=== PATIENT | female | born 1935 | race African-American/Black ===

== ENCOUNTER 2021-07-15 18:18 | Inpatient (IN) | payer MEDICARE, MEDICAID ==
[~2021-07-15] VITALS: Ht 160 cm; Wt 60.5 kg
[~2021-07-15 18:18] MED LIST: AMLO2.5T45 PO; HYDR-4001 MT; MELA10CA PO; MEMA10TA55 PO; PARO10TA74 PO; PRED5TAB48 PO; SOTA80TA PO; XAR15 GT
[2021-07-15] MEDS ORDERED: ACETAMINOPHEN 325MG TABLET PO STA (18:29)
[2021-07-15] MEDS ORDERED: PIPERACILLIN/TAZ 3.375G PREMIX 50 ML IV ONE (18:30)
[2021-07-15] MEDS ORDERED: SODIUM CHLORIDE 0.9% 1000ML BAG (SEPSIS BOLUS) IV ONE (18:30)
[2021-07-15 19:27] LABS: HEMATOCRIT. 28.3 % (36.0-48.0); HEMOGLOBIN. 9.7 g/dL (12.0-16.0); MEAN CORPUSCULAR HEMOGLOBIN 33.3 pg (28.0-32.0); MEAN CORPUSCULAR VOLUME 97.7 fL (81.0-99.0); PLATELET 356 x1000/uL (130-400); RED CELL DISTRIBUTION WIDTH 14.7 % (11.6-14.6)
[2021-07-15 19:52] LABS: PLATELET ESTIMATE NORMAL
[2021-07-15 22:26] LABS: INR 1.1; PARTIAL THROMBOPLASTIN TIME 28.8 sec (23.4-31.0); PROTHROMBIN TIME 12.2 sec (9.6-11.0)
[2021-07-15 22:27] LABS: CHLORIDE 97 mEq/L (98-107)
[2021-07-15] MEDS ORDERED: NICARDIPINE 100 MG in SODIUM CHLORIDE 0.9% 60 ML IV PRN (23:00)
[2021-07-15] MEDS ORDERED: MANNITOL 12.5G (25%) VIAL 50ML IV ONE (23:00)
[2021-07-15 23:45] VITALS: BP 171/103
[2021-07-15] MEDS ORDERED: HUMAN PROTHROMBIN COMPLX (PCC) 500 UNITS VIAL IV NR (23:45)
[2021-07-15] MEDS ORDERED: HUMAN PROTHROMBIN COMPLX IV NR (23:45)
[2021-07-15] MEDS: MANNITOL 20% 500 ML IV SCH (23:45)
[2021-07-16] VITALS (81 sets, daily range): BP systolic 98–179; BP diastolic 52–115
[2021-07-16] MEDS: DEXAMETHASONE 10 MG/ML VIAL IV SCH ×3 (00:06→12:30)
[2021-07-16] MEDS: NICARDIPINE 100 MG in SODIUM CHLORIDE 0.9% 60 ML IV PRN (00:07)
[2021-07-16] MEDS: DEXT 5%/LACTATED RINGERS 1,000 ML IV SCH ×2 (00:10→15:20)
[2021-07-16] MEDS: LEVETIRACETAM 500MG PREMIX 100 ML IV SCH ×3 (00:43→21:41)
[2021-07-16] MEDS ORDERED: ACETAMINOPHEN 650MG SUPP PR PRN (01:30)
[2021-07-16] MEDS ORDERED: IPRATROPIUM/ALBUTEROL 0.5-3(2.5)MG/3ML NEB HHN PRN (01:30)
[2021-07-16] MEDS ORDERED: ONDANSETRON HCL 4MG/2ML INJ IV PRN (01:30)
[2021-07-16] MEDS ORDERED: GUAIFENESIN 200MG/10ML SUGAR FREE UDC PO PRN (01:30)
[2021-07-16] MEDS ORDERED: CLONIDINE 0.1MG TABLET PO PRN (01:30)
[2021-07-16 02:07] LABS: CLARITY URINE CLEAR (CLEAR); COLOR URINE YELLOW (YELLOW); KETONES URINE NEGATIVE (NEGATIVE); LEUKOCYTE ESTERASE URINE 1+ (NEGATIVE); NITRITE URINE NEGATIVE (NEGATIVE); OCCULT BLOOD URINE NEGATIVE (NEGATIVE); PH URINE 6.5 (4.5-8.0); PROTEIN URINE NEGATIVE (NEGATIVE); SPECIFIC GRAVITY URINE 1.014 (1.005-1.030)
[2021-07-16] MEDS ORDERED: MANNITOL 20% (20GM/100ML) BAG 500ML PREMIX IV ONE (02:45)
[2021-07-16] MEDS ORDERED: MANNITOL 20% 125 ML IV NR (02:45)
[2021-07-16] MEDS: MANNITOL 20% 500 ML IV SCH ×6 (03:15→23:13)
[2021-07-16 04:20] LABS: HEMATOCRIT. 32.7 % (36.0-48.0); HEMOGLOBIN. 10.7 g/dL (12.0-16.0); MEAN CORPUSCULAR VOLUME 100.7 fL (81.0-99.0); MEAN PLATELET VOLUME 9.1 fl (7.4-10.4); PLATELET 267 x1000/uL (130-400); RED BLOOD CELL COUNT 3.24 mill/uL (4.2-5.4); RED CELL DISTRIBUTION WIDTH 15.4 % (11.6-14.6)
[2021-07-16 04:39] LABS: CHLORIDE 97 mEq/L (98-107)
[2021-07-16 04:47] LABS: HDL CHOLESTEROL 50 mg/dL (40-59)
[2021-07-16 04:48] LABS: LDL CHOLESTEROL 99 mg/dL (5-100)
[2021-07-16 04:49] LABS: CREATINE KINASE 201 IU/L (26-192)
[2021-07-16 04:50] LABS: T4 FREE 1.32 ng/dL (0.76-1.46)
[2021-07-16 06:03] LABS: PLATELET ESTIMATE NORMAL
[2021-07-16] MEDS ORDERED: BACITRACIN 15GM TUBE TOP ONE (06:48)
[2021-07-16] MEDS ORDERED: THROMBIN (BOVINE) 5000 UNITS/VIAL TOP ONE (06:49)
[2021-07-16] MEDS ORDERED: GENTAMICIN SULF 40MG/ML 2ML VIAL ONE (06:50)
[2021-07-16] MEDS ORDERED: NEOSTIGMINE METHYLSULFATE 1MG/ML 10 ML VIAL ONE (07:16)
[2021-07-16] MEDS ORDERED: FENTANYL CITRATE/PF 50MCG/ML 2ML VIAL ONE (07:16)
[2021-07-16] MEDS ORDERED: MIDAZOLAM HCL 2 MG/2 ML VIAL ONE (07:16)
[2021-07-16] MEDS ORDERED: ROCURONIUM BROMIDE 10MG/ML VIAL 5ML IV ONE (07:16)
[2021-07-16] MEDS ORDERED: PROPOFOL 200MG/20ML VIAL IV ONE (07:16)
[2021-07-16] MEDS ORDERED: GLYCOPYRROLATE 0.2 MG/ML 2ML VIAL ONE (07:17)
[2021-07-16] MEDS ORDERED: ONDANSETRON HCL 4MG/2ML INJ ONE (07:42)
[2021-07-16] MEDS ORDERED: DEXAMETHASONE 4MG/ML 1ML VIAL ONE (07:42)
[2021-07-16] MEDS ORDERED: SODIUM CHLORIDE 0.9% 10ML VIAL ONE (08:20)
[2021-07-16] MEDS ORDERED: CEFAZOLIN SODIUM 1000MG/VIAL ONE (08:20)
[2021-07-16] MEDS ORDERED: LABETALOL HCL 5MG/ML VIAL 20ML IV ONE (08:20)
[2021-07-16] MEDS ORDERED: HYDRALAZINE 20MG/ML VIAL ONE (08:20)
[2021-07-16] MEDS: MORPHINE SULFATE 2 MG/ML CPJ (NOT FOR IM USE) IV PRN (08:58)
[2021-07-16 09:24] LABS: INR 1.1; PARTIAL THROMBOPLASTIN TIME 24.5 sec (23.4-31.0); PROTHROMBIN TIME 11.5 sec (9.6-11.0)
[2021-07-16 10:33] LABS: BG BASE EXCESS -1.5 mmol/L (-2.0-2.0); BG CARBOXYHEMOGLOBIN 0.4 % (0.5-1.5); BG DEOXYHEMOGLOBIN 0.3 % (0.0-5.0); BG FRACTION INSPIRED OXYGEN 100; BG HCO3 ACT 21.5 mmol/L (22.0-26.0); BG METHEMOGLOBIN 0.2 % (0.0-1.5); BG OXYGEN SATURATION 99.7 % (92.0-98.5); BG OXYHEMOGLOBIN 99.1 % (94.0-97.0); BG PCO2 30.6 mmHg (35.0-45.0); BG PEEP (cmH2O) 0 cmH2O; BG PH 7.465 (7.350-7.450); BG PO2 398.2 mmHg (75.0-100.0); BG SAMPLE SITE RIGHT RADIAL; BG TOTAL HEMOGLOBIN 10.8 g/dL (12.0-18.0); BG VENT MODE VENT - AC
[2021-07-16] MEDS ORDERED: PROPOFOL 10MG/ML 100ML 100 ML IV PRN (12:00)
[2021-07-16] MEDS: IPRATROPIUM/ALBUTEROL 0.5-3(2.5)MG/3ML NEB HHN SCH ×2 (12:33→20:38)
[2021-07-16] MEDS ORDERED: LIDOCAINE HCL 1% 10 MG/ML 10ML VIAL ONE (13:10)
[2021-07-16] MEDS ORDERED: HYDRALAZINE 20MG/ML VIAL IV PRN (13:15)
[2021-07-16 19:58] LABS: CREATINE KINASE 74 IU/L (26-192)
[2021-07-17] VITALS (87 sets, daily range): BP systolic 93–142; BP diastolic 54–91
[2021-07-17] MEDS: IPRATROPIUM/ALBUTEROL 0.5-3(2.5)MG/3ML NEB HHN SCH ×4 (01:44→21:13)
[2021-07-17] MEDS: LEVETIRACETAM 500MG PREMIX 100 ML IV SCH ×2 (08:24→20:45)
[2021-07-17] MEDS: THIAMINE HCL 100MG TABLET PO SCH (08:24)
[2021-07-17] MEDS: MULTIVITAMINS,THER W-MINERALS TABLET PO SCH (08:24)
[2021-07-17] MEDS: NICARDIPINE 100 MG in SODIUM CHLORIDE 0.9% 60 ML IV PRN (08:24)
[2021-07-17] MEDS: FOLIC ACID/VITAMIN B COMP W-C TABLET PO SCH (08:24)
[2021-07-17 08:33] LABS: HEMATOCRIT. 28.2 % (36.0-48.0); HEMOGLOBIN. 9.4 g/dL (12.0-16.0); MEAN CORPUSCULAR HEMOGLOBIN 32.9 pg (28.0-32.0); MEAN CORPUSCULAR VOLUME 99.1 fL (81.0-99.0); MEAN PLATELET VOLUME 8.3 fl (7.4-10.4); PLATELET 395 x1000/uL (130-400); RED BLOOD CELL COUNT 2.85 mill/uL (4.2-5.4); RED CELL DISTRIBUTION WIDTH 15.6 % (11.6-14.6)
[2021-07-17 08:36] LABS: CHLORIDE 104 mEq/L (98-107)
[2021-07-17 10:05] LABS: BG BASE EXCESS 1.9 mmol/L (-2.0-2.0); BG CARBOXYHEMOGLOBIN 0.1 % (0.5-1.5); BG DEOXYHEMOGLOBIN 0.6 % (0.0-5.0); BG FRACTION INSPIRED OXYGEN 50; BG METHEMOGLOBIN 0.6 % (0.0-1.5); BG OXYGEN SATURATION 99.4 % (92.0-98.5); BG OXYHEMOGLOBIN 98.7 % (94.0-97.0); BG PCO2 26.2 mmHg (35.0-45.0); BG PEEP (cmH2O) 0 cmH2O; BG PH 7.561 (7.350-7.450); BG SAMPLE SITE LEFT BRACHIAL; BG TOTAL HEMOGLOBIN 12.6 g/dL (12.0-18.0); BG VENT MODE VENT - AC
[2021-07-17 10:45] LABS: PLATELET ESTIMATE NORMAL
[2021-07-17] MEDS ORDERED: POTASSIUM CHLORIDE 20MEQ/PACKET PO NR (13:30)
[2021-07-17] MEDS: SOTALOL HCL 80MG TABLET NG SCH ×2 (14:47→20:45)
[2021-07-17] MEDS: DEXT 5%/LACTATED RINGERS 1,000 ML IV SCH (14:47)
[2021-07-18] VITALS (95 sets, daily range): BP systolic 55–167; BP diastolic 24–124
[2021-07-18] MEDS: DEXT 5%/LACTATED RINGERS 1,000 ML IV SCH ×2 (01:32→17:57)
[2021-07-18] MEDS ORDERED: PHENYTOIN SODIUM 500 MG in SODIUM CHLORIDE 0.9% 50 ML IV SCH (02:00)
[2021-07-18] MEDS: IPRATROPIUM/ALBUTEROL 0.5-3(2.5)MG/3ML NEB HHN SCH ×3 (02:14→16:20)
[2021-07-18 05:47] LABS: HEMATOCRIT. 26.1 % (36.0-48.0); HEMOGLOBIN. 8.7 g/dL (12.0-16.0); MEAN CORPUSCULAR HEMOGLOBIN 33.1 pg (28.0-32.0); MEAN CORPUSCULAR VOLUME 99.4 fL (81.0-99.0); PLATELET 350 x1000/uL (130-400); RED BLOOD CELL COUNT 2.62 mill/uL (4.2-5.4); RED CELL DISTRIBUTION WIDTH 15.6 % (11.6-14.6)
[2021-07-18 06:02] LABS: CHLORIDE 111 mEq/L (98-107)
[2021-07-18] MEDS: PHENYTOIN SODIUM 100MG/2ML VIAL IV SCH ×3 (07:05→22:10)
[2021-07-18] MEDS: SOTALOL HCL 80MG TABLET NG SCH ×2 (08:03→21:00)
[2021-07-18] MEDS: FOLIC ACID/VITAMIN B COMP W-C TABLET PO SCH (08:03)
[2021-07-18] MEDS: THIAMINE HCL 100MG TABLET PO SCH (08:04)
[2021-07-18] MEDS: DOCUSATE SODIUM 100MG CAPSULE PO PRN (08:04)
[2021-07-18] MEDS: MULTIVITAMINS,THER W-MINERALS TABLET PO SCH (08:04)
[2021-07-18] MEDS: MORPHINE SULFATE 2 MG/ML CPJ (NOT FOR IM USE) IV PRN (08:05)
[2021-07-18] MEDS: LEVETIRACETAM 500MG PREMIX 100 ML IV SCH (08:18)
[2021-07-18 08:52] LABS: BG BASE EXCESS -2.1 mmol/L (-2.0-2.0); BG CARBOXYHEMOGLOBIN 0.3 % (0.5-1.5); BG DEOXYHEMOGLOBIN 0.3 % (0.0-5.0); BG FRACTION INSPIRED OXYGEN 80; BG HCO3 ACT 20.4 mmol/L (22.0-26.0); BG METHEMOGLOBIN 0.3 % (0.0-1.5); BG OXYGEN SATURATION 99.7 % (92.0-98.5); BG OXYHEMOGLOBIN 99.1 % (94.0-97.0); BG PCO2 26.4 mmHg (35.0-45.0); BG PH 7.506 (7.350-7.450); BG SAMPLE SITE RIGHT BRACHIAL; BG TOTAL HEMOGLOBIN 8.3 g/dL (12.0-18.0); BG VENT MODE VENT - AC
[2021-07-18 12:15] LABS: PLATELET ESTIMATE NORMAL
[2021-07-18] MEDS ORDERED: LEVETIRACETAM 1,000 MG in SODIUM CHLORIDE 0.9% 100 ML IV SCH (12:45)
[2021-07-18] MEDS: LEVETIRACETAM 1000MG PREMIX 100 ML IV SCH ×2 (14:29→21:24)
[2021-07-18] MEDS: PHENYLEPHRINE 100 MG in DEXT 5% WATER 240 ML IV PRN ×2 (17:52→20:26)
[2021-07-19] VITALS (93 sets, daily range): BP systolic 58–144; BP diastolic 36–83
[2021-07-19] MEDS: IPRATROPIUM/ALBUTEROL 0.5-3(2.5)MG/3ML NEB HHN SCH ×4 (01:11→19:54)
[2021-07-19] MEDS: LORAZEPAM 2MG/ML CPJ IV PRN ×2 (01:14→14:39)
[2021-07-19 04:23] LABS: HEMATOCRIT. 23.4 % (36.0-48.0); HEMOGLOBIN. 7.7 g/dL (12.0-16.0); MEAN CORPUSCULAR HEMOGLOBIN 32.8 pg (28.0-32.0); MEAN CORPUSCULAR VOLUME 99.3 fL (81.0-99.0); RED BLOOD CELL COUNT 2.36 mill/uL (4.2-5.4); RED CELL DISTRIBUTION WIDTH 14.9 % (11.6-14.6)
[2021-07-19 04:31] LABS: CHLORIDE 111 mEq/L (98-107)
[2021-07-19] MEDS: PHENYTOIN SODIUM 100MG/2ML VIAL IV SCH ×3 (05:39→22:15)
[2021-07-19] MEDS ORDERED: NALOXONE HCL 0.4MG/ML VIAL IV PRN (08:15)
[2021-07-19] MEDS: THIAMINE HCL 100MG TABLET PO SCH (08:25)
[2021-07-19] MEDS: DOCUSATE SODIUM 100MG CAPSULE PO PRN (08:25)
[2021-07-19] MEDS: SOTALOL HCL 80MG TABLET NG SCH ×2 (08:26→21:00)
[2021-07-19] MEDS: FOLIC ACID/VITAMIN B COMP W-C TABLET PO SCH (08:26)
[2021-07-19] MEDS: MULTIVITAMINS,THER W-MINERALS TABLET PO SCH (08:26)
[2021-07-19] MEDS: LEVETIRACETAM 1000MG PREMIX 100 ML IV SCH ×2 (08:27→21:55)
[2021-07-19] MEDS: DOCUSATE SODIUM SUGAR FREE 100MG/10ML UDC NG SCH (08:36)
[2021-07-19] MEDS: PANTOPRAZOLE SODIUM 40 MG/VIAL IV SCH (08:36)
[2021-07-19] MEDS: DEXT 5%/LACTATED RINGERS 1,000 ML IV SCH (08:37)
[2021-07-19 11:11] LABS: BG BASE EXCESS 1.8 mmol/L (-2.0-2.0); BG CARBOXYHEMOGLOBIN 0.3 % (0.5-1.5); BG FRACTION INSPIRED OXYGEN 35; BG HCO3 ACT 24.7 mmol/L (22.0-26.0); BG OXYHEMOGLOBIN 98.7 % (94.0-97.0); BG PH 7.506 (7.350-7.450); BG PO2 138.1 mmHg (75.0-100.0); BG SAMPLE SITE RIGHT RADIAL; BG TOTAL HEMOGLOBIN 8.4 g/dL (12.0-18.0); BG VENT MODE VENT - AC
[2021-07-20] VITALS (87 sets, daily range): BP systolic 88–138; BP diastolic 46–83
[2021-07-20] MEDS: IPRATROPIUM/ALBUTEROL 0.5-3(2.5)MG/3ML NEB HHN SCH ×4 (02:02→20:19)
[2021-07-20] MEDS: DEXT 5%/LACTATED RINGERS 1,000 ML IV SCH ×2 (04:10→18:29)
[2021-07-20] MEDS: PHENYTOIN SODIUM 100MG/2ML VIAL IV SCH ×3 (06:16→20:33)
[2021-07-20] MEDS: MULTIVITAMINS,THER W-MINERALS TABLET PO SCH (08:18)
[2021-07-20] MEDS: THIAMINE HCL 100MG TABLET PO SCH (08:18)
[2021-07-20] MEDS: FOLIC ACID/VITAMIN B COMP W-C TABLET PO SCH (08:18)
[2021-07-20] MEDS: DOCUSATE SODIUM SUGAR FREE 100MG/10ML UDC NG SCH (08:18)
[2021-07-20] MEDS: LEVETIRACETAM 1000MG PREMIX 100 ML IV SCH ×2 (08:18→20:33)
[2021-07-20] MEDS: PANTOPRAZOLE SODIUM 40 MG/VIAL IV SCH (08:18)
[2021-07-20] MEDS: SOTALOL HCL 80MG TABLET NG SCH ×2 (08:19→21:00)
[2021-07-20 08:48] LABS: BG BASE EXCESS 3.3 mmol/L (-2.0-2.0); BG CARBOXYHEMOGLOBIN 0.9 % (0.5-1.5); BG DEOXYHEMOGLOBIN 1.9 % (0.0-5.0); BG FRACTION INSPIRED OXYGEN 35; BG HCO3 ACT 26.3 mmol/L (22.0-26.0); BG METHEMOGLOBIN 0.3 % (0.0-1.5); BG OXYGEN SATURATION 98.1 % (92.0-98.5); BG OXYHEMOGLOBIN 96.9 % (94.0-97.0); BG PCO2 33.5 mmHg (35.0-45.0); BG PH 7.513 (7.350-7.450); BG SAMPLE SITE RIGHT RADIAL; BG TOTAL HEMOGLOBIN 8.6 g/dL (12.0-18.0); BG VENT MODE VENT - AC
[2021-07-21] VITALS (86 sets, daily range): BP systolic 82–133; BP diastolic 44–80
[2021-07-21] MEDS: IPRATROPIUM/ALBUTEROL 0.5-3(2.5)MG/3ML NEB HHN SCH ×4 (02:10→21:23)
[2021-07-21] MEDS: PHENYTOIN SODIUM 100MG/2ML VIAL IV SCH ×3 (05:21→21:35)
[2021-07-21] MEDS: SOTALOL HCL 80MG TABLET NG SCH ×4 (09:00→21:36)
[2021-07-21 09:11] LABS: BG BASE EXCESS 1.5 mmol/L (-2.0-2.0); BG CARBOXYHEMOGLOBIN 0.9 % (0.5-1.5); BG DEOXYHEMOGLOBIN 1.7 % (0.0-5.0); BG FRACTION INSPIRED OXYGEN 35; BG HCO3 ACT 24.2 mmol/L (22.0-26.0); BG METHEMOGLOBIN 0.2 % (0.0-1.5); BG OXYGEN SATURATION 98.3 % (92.0-98.5); BG OXYHEMOGLOBIN 97.2 % (94.0-97.0); BG PCO2 30.5 mmHg (35.0-45.0); BG PH 7.518 (7.350-7.450); BG PO2 109.7 mmHg (75.0-100.0); BG SAMPLE SITE RIGHT BRACHIAL; BG TOTAL HEMOGLOBIN 7.8 g/dL (12.0-18.0); BG VENT MODE VENT - AC
[2021-07-21] MEDS: PANTOPRAZOLE SODIUM 40 MG/VIAL IV SCH (09:38)
[2021-07-21] MEDS: THIAMINE HCL 100MG TABLET PO SCH (09:38)
[2021-07-21] MEDS: LEVETIRACETAM 1000MG PREMIX 100 ML IV SCH ×2 (09:38→21:35)
[2021-07-21] MEDS: FOLIC ACID/VITAMIN B COMP W-C TABLET PO SCH (09:38)
[2021-07-21] MEDS: DOCUSATE SODIUM SUGAR FREE 100MG/10ML UDC NG SCH (09:38)
[2021-07-21] MEDS: MULTIVITAMINS,THER W-MINERALS TABLET PO SCH (09:39)
[2021-07-21] MEDS ORDERED: POLYVINYL ALCOHOL OPHTH DROPS 15ML BOTHEYE PRN (10:45)
[2021-07-21 12:07] LABS: HEMATOCRIT. 25.2 % (36.0-48.0); MEAN CORPUSCULAR HEMOGLOBIN 32.3 pg (28.0-32.0); MEAN CORPUSCULAR VOLUME 101.4 fL (81.0-99.0); MEAN PLATELET VOLUME 7.9 fl (7.4-10.4); PLATELET 198 x1000/uL (130-400); RED BLOOD CELL COUNT 2.48 mill/uL (4.2-5.4); RED CELL DISTRIBUTION WIDTH 15.3 % (11.6-14.6)
[2021-07-21 12:58] LABS: CHLORIDE 104 mEq/L (98-107)
[2021-07-21] MEDS: DEXT 5%/LACTATED RINGERS 1,000 ML IV SCH (13:38)
[2021-07-21 14:13] LABS: PLATELET ESTIMATE NORMAL
[2021-07-21] MEDS: ACETAMINOPHEN 650MG/20.3ML UDC PO PRN ×2 (17:23)
[2021-07-21] MEDS: CEFEPIME 1,000 MG in DEXTROSE 5% WATER 50 ML IV SCH (21:35)
[2021-07-22] VITALS (89 sets, daily range): BP systolic 84–165; BP diastolic 34–102
[2021-07-22] MEDS: PHENYLEPHRINE 100 MG in DEXT 5% WATER 240 ML IV PRN ×2 (01:17→14:44)
[2021-07-22] MEDS: IPRATROPIUM/ALBUTEROL 0.5-3(2.5)MG/3ML NEB HHN SCH ×4 (01:32→20:26)
[2021-07-22] MEDS: PHENYTOIN SODIUM 100MG/2ML VIAL IV SCH ×3 (06:27→22:49)
[2021-07-22] MEDS: DEXT 5%/LACTATED RINGERS 1,000 ML IV SCH ×2 (06:28→21:56)
[2021-07-22 07:33] LABS: BG BASE EXCESS 1.9 mmol/L (-2.0-2.0); BG CARBOXYHEMOGLOBIN 0.4 % (0.5-1.5); BG DEOXYHEMOGLOBIN 4.4 % (0.0-5.0); BG HCO3 ACT 24.5 mmol/L (22.0-26.0); BG METHEMOGLOBIN 0.3 % (0.0-1.5); BG OXYGEN SATURATION 95.6 % (92.0-98.5); BG OXYHEMOGLOBIN 94.9 % (94.0-97.0); BG PCO2 30.6 mmHg (35.0-45.0); BG PH 7.521 (7.350-7.450); BG PO2 75.4 mmHg (75.0-100.0); BG SAMPLE SITE RIGHT RADIAL; BG TOTAL HEMOGLOBIN 9.4 g/dL (12.0-18.0); BG VENT MODE VENT - AC
[2021-07-22] MEDS: ACETAMINOPHEN 650MG/20.3ML UDC PO PRN (07:59)
[2021-07-22] MEDS: CEFEPIME 1,000 MG in DEXTROSE 5% WATER 50 ML IV SCH ×2 (08:00→21:55)
[2021-07-22] MEDS: PANTOPRAZOLE SODIUM 40 MG/VIAL IV SCH (08:00)
[2021-07-22] MEDS: DOCUSATE SODIUM SUGAR FREE 100MG/10ML UDC NG SCH (08:00)
[2021-07-22] MEDS: MULTIVITAMINS,THER W-MINERALS TABLET PO SCH (08:00)
[2021-07-22] MEDS: LEVETIRACETAM 1000MG PREMIX 100 ML IV SCH ×2 (08:00→21:55)
[2021-07-22] MEDS: SOTALOL HCL 80MG TABLET NG SCH ×2 (08:00→21:00)
[2021-07-22] MEDS: LORAZEPAM 2MG/ML CPJ IV PRN (19:07)
[2021-07-23] VITALS (89 sets, daily range): BP systolic 54–163; BP diastolic 33–106
[2021-07-23] MEDS: IPRATROPIUM/ALBUTEROL 0.5-3(2.5)MG/3ML NEB HHN SCH ×4 (01:33→21:13)
[2021-07-23] MEDS: PHENYTOIN SODIUM 100MG/2ML VIAL IV SCH ×3 (05:27→21:33)
[2021-07-23] MEDS: PHENYLEPHRINE 100 MG in DEXT 5% WATER 240 ML IV PRN ×2 (05:29→17:52)
[2021-07-23 05:50] LABS: CHLORIDE 102 mEq/L (98-107)
[2021-07-23 05:56] LABS: BASOPHILS % 0.4 % (0.0-2.0); EOSINOPHILS % 1.5 % (0.0-5.0); HEMOGLOBIN. 8.3 g/dL (12.0-16.0); LYMPHOCYTES % 14.8 % (20.0-50.0); MEAN CORPUSCULAR HEMOGLOBIN 33.1 pg (28.0-32.0); MEAN CORPUSCULAR VOLUME 99.2 fL (81.0-99.0); MEAN PLATELET VOLUME 9.1 fl (7.4-10.4); NEUTROPHILS % 70.3 % (40.0-76.0); PLATELET 210 x1000/uL (130-400); RED BLOOD CELL COUNT 2.52 mill/uL (4.2-5.4); RED CELL DISTRIBUTION WIDTH 15.1 % (11.6-14.6)
[2021-07-23 08:32] LABS: BG BASE EXCESS 2.9 mmol/L (-2.0-2.0); BG CARBOXYHEMOGLOBIN 0.5 % (0.5-1.5); BG DEOXYHEMOGLOBIN 1.1 % (0.0-5.0); BG FRACTION INSPIRED OXYGEN 40; BG HCO3 ACT 25.5 mmol/L (22.0-26.0); BG METHEMOGLOBIN 0.3 % (0.0-1.5); BG OXYGEN SATURATION 98.9 % (92.0-98.5); BG OXYHEMOGLOBIN 98.1 % (94.0-97.0); BG PCO2 31.6 mmHg (35.0-45.0); BG PH 7.525 (7.350-7.450); BG PO2 120.1 mmHg (75.0-100.0); BG SAMPLE SITE RIGHT RADIAL; BG VENT MODE VENT - AC
[2021-07-23] MEDS: MULTIVITAMINS,THER W-MINERALS TABLET PO SCH (09:00)
[2021-07-23] MEDS: DOCUSATE SODIUM SUGAR FREE 100MG/10ML UDC NG SCH (09:00)
[2021-07-23] MEDS: SOTALOL HCL 80MG TABLET NG SCH ×2 (09:00→20:58)
[2021-07-23] MEDS: PANTOPRAZOLE SODIUM 40 MG/VIAL IV SCH (09:26)
[2021-07-23] MEDS: CEFEPIME 1,000 MG in DEXTROSE 5% WATER 50 ML IV SCH ×2 (09:26→20:57)
[2021-07-23] MEDS: LEVETIRACETAM 1000MG PREMIX 100 ML IV SCH ×2 (09:27→21:33)
[2021-07-23] MEDS: ACETAMINOPHEN 650MG SUPP PR PRN (16:00)
[2021-07-23] MEDS: DEXT 5%/LACTATED RINGERS 1,000 ML IV SCH (17:49)
[2021-07-24] VITALS (98 sets, daily range): BP systolic 81–155; BP diastolic 36–86
[2021-07-24] MEDS: IPRATROPIUM/ALBUTEROL 0.5-3(2.5)MG/3ML NEB HHN SCH ×4 (01:02→21:02)
[2021-07-24] MEDS: DEXT 5%/LACTATED RINGERS 1,000 ML IV SCH ×2 (06:08→23:40)
[2021-07-24 07:56] LABS: BG BASE EXCESS 1.8 mmol/L (-2.0-2.0); BG CARBOXYHEMOGLOBIN 0.2 % (0.5-1.5); BG DEOXYHEMOGLOBIN 1.4 % (0.0-5.0); BG HCO3 ACT 24.8 mmol/L (22.0-26.0); BG METHEMOGLOBIN 0.2 % (0.0-1.5); BG OXYGEN SATURATION 98.6 % (92.0-98.5); BG OXYHEMOGLOBIN 98.2 % (94.0-97.0); BG PCO2 32.7 mmHg (35.0-45.0); BG PH 7.498 (7.350-7.450); BG PO2 117.2 mmHg (75.0-100.0); BG SAMPLE SITE RIGHT RADIAL; BG TOTAL HEMOGLOBIN 9.6 g/dL (12.0-18.0); BG VENT MODE VENT - AC
[2021-07-24] MEDS: MULTIVITAMINS,THER W-MINERALS TABLET PO SCH ×2 (08:13→08:16)
[2021-07-24] MEDS: PANTOPRAZOLE SODIUM 40 MG/VIAL IV SCH (08:13)
[2021-07-24] MEDS: PHENYTOIN SODIUM 100MG/2ML VIAL IV SCH ×3 (08:14→17:07)
[2021-07-24] MEDS: DOCUSATE SODIUM 100MG CAPSULE PO PRN (08:14)
[2021-07-24] MEDS: CEFEPIME 1,000 MG in DEXTROSE 5% WATER 50 ML IV SCH ×2 (08:14→22:15)
[2021-07-24] MEDS: LEVETIRACETAM 1000MG PREMIX 100 ML IV SCH ×2 (08:14→22:15)
[2021-07-24] MEDS: SOTALOL HCL 80MG TABLET NG SCH ×2 (08:14→22:15)
[2021-07-24] MEDS: DOCUSATE SODIUM SUGAR FREE 100MG/10ML UDC NG SCH (08:16)
[2021-07-24] MEDS: PHENYLEPHRINE 100 MG in DEXT 5% WATER 240 ML IV PRN (11:04)
[2021-07-25] VITALS (85 sets, daily range): BP systolic 87–126; BP diastolic 45–86
[2021-07-25] MEDS ORDERED: IPRATROPIUM/ALBUTEROL 0.5-3(2.5)MG/3ML NEB ONE ×2 (02:13→02:14)
[2021-07-25] MEDS: IPRATROPIUM/ALBUTEROL 0.5-3(2.5)MG/3ML NEB HHN SCH ×4 (02:22→19:46)
[2021-07-25] MEDS: LEVETIRACETAM 1000MG PREMIX 100 ML IV SCH ×2 (08:10→21:14)
[2021-07-25] MEDS: CEFEPIME 1,000 MG in DEXTROSE 5% WATER 50 ML IV SCH ×2 (08:10→21:14)
[2021-07-25] MEDS: PANTOPRAZOLE SODIUM 40 MG/VIAL IV SCH (08:10)
[2021-07-25] MEDS: PHENYTOIN SODIUM 100MG/2ML VIAL IV SCH ×3 (08:10→16:24)
[2021-07-25] MEDS: MULTIVITAMINS,THER W-MINERALS TABLET PO SCH (08:10)
[2021-07-25] MEDS: DOCUSATE SODIUM 100MG CAPSULE PO PRN (08:11)
[2021-07-25] MEDS: SOTALOL HCL 80MG TABLET NG SCH (08:11)
[2021-07-25] MEDS: DOCUSATE SODIUM SUGAR FREE 100MG/10ML UDC NG SCH (08:16)
[2021-07-25] MEDS: DEXT 5%/LACTATED RINGERS 1,000 ML IV SCH (16:24)
[2021-07-25] MEDS: AMIODARONE HCL 200 MG TABLET NG SCH ×2 (17:42→21:14)
[2021-07-26] VITALS (73 sets, daily range): BP systolic 83–131; BP diastolic 47–83
[2021-07-26] MEDS: IPRATROPIUM/ALBUTEROL 0.5-3(2.5)MG/3ML NEB HHN SCH ×4 (01:38→21:04)
[2021-07-26 04:41] LABS: HEMATOCRIT 23.9 % (36.0-48.0); MEAN CORPUSCULAR HEMOGLOBIN 33.2 pg (28.0-32.0); MEAN CORPUSCULAR VOLUME 98.9 fL (81.0-99.0); PLATELET 203 x1000/uL (130-400); RED BLOOD CELL COUNT 2.42 mill/uL (4.2-5.4); RED CELL DISTRIBUTION WIDTH 15.1 % (11.6-14.6)
[2021-07-26 04:46] LABS: CHLORIDE 99 mEq/L (98-107)
[2021-07-26] MEDS ORDERED: POTASSIUM CHLORIDE 20MEQ TABLET SR PO SCH (08:15)
[2021-07-26] MEDS ORDERED: IPRATROPIUM/ALBUTEROL 0.5-3(2.5)MG/3ML NEB ONE ×2 (08:28→12:11)
[2021-07-26 08:38] LABS: BG BASE EXCESS 4.3 mmol/L (-2.0-2.0); BG CARBOXYHEMOGLOBIN 0.6 % (0.5-1.5); BG DEOXYHEMOGLOBIN 3.4 % (0.0-5.0); BG HCO3 ACT 27.4 mmol/L (22.0-26.0); BG METHEMOGLOBIN 0.2 % (0.0-1.5); BG OXYGEN SATURATION 96.6 % (92.0-98.5); BG OXYHEMOGLOBIN 95.8 % (94.0-97.0); BG PCO2 34.5 mmHg (35.0-45.0); BG PH 7.518 (7.350-7.450); BG PO2 83.6 mmHg (75.0-100.0); BG SAMPLE SITE RIGHT BRACHIAL; BG TOTAL HEMOGLOBIN 8.1 g/dL (12.0-18.0); BG VENT MODE VENT - AC
[2021-07-26] MEDS: MULTIVITAMINS,THER W-MINERALS TABLET PO SCH (09:10)
[2021-07-26] MEDS: DOCUSATE SODIUM SUGAR FREE 100MG/10ML UDC NG SCH (09:10)
[2021-07-26] MEDS: PANTOPRAZOLE SODIUM 40 MG/VIAL IV SCH (09:10)
[2021-07-26] MEDS: PHENYTOIN SODIUM 100MG/2ML VIAL IV SCH ×3 (09:10→17:19)
[2021-07-26] MEDS: AMIODARONE HCL 200 MG TABLET NG SCH ×2 (09:10→20:55)
[2021-07-26] MEDS: LEVETIRACETAM 1000MG PREMIX 100 ML IV SCH ×2 (09:10→20:54)
[2021-07-26] MEDS: CEFEPIME 1,000 MG in DEXTROSE 5% WATER 50 ML IV SCH (09:10)
[2021-07-26] MEDS: DEXT 5%/LACTATED RINGERS 1,000 ML IV SCH (09:21)
[2021-07-26] MEDS: PHENYLEPHRINE 100 MG in DEXT 5% WATER 240 ML IV PRN (18:03)
[2021-07-27] VITALS (95 sets, daily range): BP systolic 84–134; BP diastolic 48–76
[2021-07-27] MEDS: IPRATROPIUM/ALBUTEROL 0.5-3(2.5)MG/3ML NEB HHN SCH ×4 (01:04→20:18)
[2021-07-27] MEDS: DEXT 5%/LACTATED RINGERS 1,000 ML IV SCH ×2 (02:01→18:07)
[2021-07-27] MEDS: DOCUSATE SODIUM SUGAR FREE 100MG/10ML UDC NG SCH (08:35)
[2021-07-27] MEDS: LEVETIRACETAM 1000MG PREMIX 100 ML IV SCH ×2 (08:35→20:45)
[2021-07-27] MEDS: PANTOPRAZOLE SODIUM 40 MG/VIAL IV SCH (08:35)
[2021-07-27] MEDS: MULTIVITAMINS,THER W-MINERALS TABLET PO SCH (08:35)
[2021-07-27] MEDS: PHENYTOIN SODIUM 100MG/2ML VIAL IV SCH ×3 (08:55→17:03)
[2021-07-27] MEDS: AMIODARONE HCL 200 MG TABLET NG SCH ×2 (09:00→20:47)
[2021-07-28] VITALS (93 sets, daily range): BP systolic 51–137; BP diastolic 25–101
[2021-07-28] MEDS: IPRATROPIUM/ALBUTEROL 0.5-3(2.5)MG/3ML NEB HHN SCH ×4 (02:37→20:39)
[2021-07-28 06:42] LABS: CHLORIDE 99 mEq/L (98-107); TOTAL IRON BINDING CAPACITY 183 ug/dL (250-450)
[2021-07-28 07:06] LABS: VITAMIN B12 SERUM 1663 pg/mL (211-911)
[2021-07-28] MEDS: PANTOPRAZOLE SODIUM 40 MG/VIAL IV SCH (08:43)
[2021-07-28] MEDS: LEVETIRACETAM 1000MG PREMIX 100 ML IV SCH ×2 (08:43→21:31)
[2021-07-28] MEDS: PHENYTOIN SODIUM 100MG/2ML VIAL IV SCH (08:43)
[2021-07-28] MEDS: AMIODARONE HCL 200 MG TABLET NG SCH ×2 (08:43→20:59)
[2021-07-28] MEDS: DOCUSATE SODIUM SUGAR FREE 100MG/10ML UDC NG SCH (08:43)
[2021-07-28] MEDS: MULTIVITAMINS,THER W-MINERALS TABLET PO SCH (08:44)
[2021-07-28 09:12] LABS: BG BASE EXCESS 6.6 mmol/L (-2.0-2.0); BG DEOXYHEMOGLOBIN 2.2 % (0.0-5.0); BG FRACTION INSPIRED OXYGEN 30; BG HCO3 ACT 29.8 mmol/L (22.0-26.0); BG METHEMOGLOBIN 0.3 % (0.0-1.5); BG OXYGEN SATURATION 97.8 % (92.0-98.5); BG OXYHEMOGLOBIN 96.5 % (94.0-97.0); BG PCO2 37.1 mmHg (35.0-45.0); BG PH 7.523 (7.350-7.450); BG PO2 98.2 mmHg (75.0-100.0); BG SAMPLE SITE RIGHT RADIAL; BG TOTAL HEMOGLOBIN 8.8 g/dL (12.0-18.0); BG VENT MODE VENT - AC
[2021-07-28] MEDS: DEXT 5%/LACTATED RINGERS 1,000 ML IV SCH (10:27)
[2021-07-28] MEDS: CEFEPIME 2,000 MG in DEXT 5% WATER 100 ML IV SCH (13:54)
[2021-07-28] MEDS ORDERED: AMIODARONE HCL 900 MG in DEXT 5% WATER 482 ML IV PRN (16:45)
[2021-07-28] MEDS ORDERED: AMIODARONE HCL 150 MG in DEXT 5% WATER 100 ML IV SCH (17:30)
[2021-07-28] MEDS: ACETAMINOPHEN 650MG SUPP PR PRN (22:53)
[2021-07-29] VITALS (97 sets, daily range): BP systolic 75–153; BP diastolic 24–87
[2021-07-29] MEDS: CEFEPIME 2,000 MG in DEXT 5% WATER 100 ML IV SCH ×2 (00:26→12:30)
[2021-07-29] MEDS: DEXT 5%/LACTATED RINGERS 1,000 ML IV SCH ×2 (02:24→21:25)
[2021-07-29] MEDS: IPRATROPIUM/ALBUTEROL 0.5-3(2.5)MG/3ML NEB HHN SCH ×4 (04:30→20:28)
[2021-07-29 06:09] LABS: BASOPHILS % 0.5 % (0.0-2.0); EOSINOPHILS % 0.5 % (0.0-5.0); HEMATOCRIT. 24.7 % (36.0-48.0); HEMOGLOBIN. 8.2 g/dL (12.0-16.0); LYMPHOCYTES % 16.2 % (20.0-50.0); MEAN CORPUSCULAR HEMOGLOBIN 32.3 pg (28.0-32.0); MEAN CORPUSCULAR VOLUME 96.8 fL (81.0-99.0); MEAN PLATELET VOLUME 8.8 fl (7.4-10.4); MONOCYTES % 3.4 % (2.0-8.0); NEUTROPHILS % 79.4 % (40.0-76.0); PLATELET 278 x1000/uL (130-400); RED BLOOD CELL COUNT 2.55 mill/uL (4.2-5.4)
[2021-07-29 06:26] LABS: CHLORIDE 96 mEq/L (98-107)
[2021-07-29 07:55] LABS: BG BASE EXCESS 3.6 mmol/L (-2.0-2.0); BG CARBOXYHEMOGLOBIN 0.3 % (0.5-1.5); BG HCO3 ACT 26.1 mmol/L (22.0-26.0); BG METHEMOGLOBIN 0.1 % (0.0-1.5); BG OXYHEMOGLOBIN 91.6 % (94.0-97.0); BG PCO2 31.2 mmHg (35.0-45.0); BG SAMPLE SITE RIGHT RADIAL; BG TOTAL HEMOGLOBIN 9.1 g/dL (12.0-18.0); BG VENT MODE VENT - AC
[2021-07-29] MEDS: LEVETIRACETAM 1000MG PREMIX 100 ML IV SCH ×2 (08:15→21:25)
[2021-07-29] MEDS: PANTOPRAZOLE SODIUM 40 MG/VIAL IV SCH (08:15)
[2021-07-29] MEDS: DOCUSATE SODIUM SUGAR FREE 100MG/10ML UDC NG SCH (08:16)
[2021-07-29] MEDS: AMIODARONE HCL 200 MG TABLET NG SCH ×2 (08:16→21:00)
[2021-07-29] MEDS: MULTIVITAMINS,THER W-MINERALS TABLET PO SCH (08:16)
[2021-07-29] MEDS: PHENYLEPHRINE 100 MG in DEXT 5% WATER 240 ML IV PRN (12:31)
[2021-07-30] VITALS (72 sets, daily range): BP systolic 68–139; BP diastolic 36–104
[2021-07-30] MEDS: CEFEPIME 2,000 MG in DEXT 5% WATER 100 ML IV SCH ×2 (00:53→13:04)
[2021-07-30] MEDS: IPRATROPIUM/ALBUTEROL 0.5-3(2.5)MG/3ML NEB HHN SCH ×4 (00:53→19:50)
[2021-07-30] MEDS: DEXT 5%/LACTATED RINGERS 1,000 ML IV SCH (07:46)
[2021-07-30] MEDS: ACETYLCYSTEINE 100MG/ML 10% VIAL 4ML INH SCH (08:39)
[2021-07-30] MEDS: DOCUSATE SODIUM SUGAR FREE 100MG/10ML UDC NG SCH ×2 (09:00→09:10)
[2021-07-30] MEDS: MULTIVITAMINS,THER W-MINERALS TABLET PO SCH ×2 (09:10→09:42)
[2021-07-30] MEDS: AMIODARONE HCL 200 MG TABLET NG SCH ×2 (09:10→09:33)
[2021-07-30] MEDS: PANTOPRAZOLE SODIUM 40 MG/VIAL IV SCH (09:33)
[2021-07-30] MEDS: LEVETIRACETAM 1000MG PREMIX 100 ML IV SCH ×2 (09:33→21:38)
[2021-07-30 09:38] LABS: BG BASE EXCESS 3.7 mmol/L (-2.0-2.0); BG CARBOXYHEMOGLOBIN 0.5 % (0.5-1.5); BG DEOXYHEMOGLOBIN 1.6 % (0.0-5.0); BG FRACTION INSPIRED OXYGEN 60; BG METHEMOGLOBIN 0.4 % (0.0-1.5); BG OXYGEN SATURATION 98.4 % (92.0-98.5); BG OXYHEMOGLOBIN 97.5 % (94.0-97.0); BG PCO2 30.2 mmHg (35.0-45.0); BG PH 7.553 (7.350-7.450); BG PO2 109.5 mmHg (75.0-100.0); BG SAMPLE SITE RIGHT RADIAL; BG TOTAL HEMOGLOBIN 8.5 g/dL (12.0-18.0); BG VENT MODE VENT - AC
[2021-07-31] VITALS (87 sets, daily range): BP systolic 78–122; BP diastolic 27–90
[2021-07-31] MEDS: CEFEPIME 2,000 MG in DEXT 5% WATER 100 ML IV SCH ×2 (01:08→13:06)
[2021-07-31] MEDS: IPRATROPIUM/ALBUTEROL 0.5-3(2.5)MG/3ML NEB HHN SCH ×2 (01:57→08:25)
[2021-07-31] MEDS: DEXT 5%/LACTATED RINGERS 1,000 ML IV SCH (02:24)
[2021-07-31 04:48] LABS: BASOPHILS % 0.6 % (0.0-2.0); EOSINOPHILS % 1.3 % (0.0-5.0); HEMATOCRIT. 21.8 % (36.0-48.0); HEMOGLOBIN. 7.2 g/dL (12.0-16.0); LYMPHOCYTES % 12.7 % (20.0-50.0); MEAN CORPUSCULAR HEMOGLOBIN 31.4 pg (28.0-32.0); MEAN CORPUSCULAR VOLUME 95.2 fL (81.0-99.0); MEAN PLATELET VOLUME 8.8 fl (7.4-10.4); MONOCYTES % 4.2 % (2.0-8.0); NEUTROPHILS % 81.2 % (40.0-76.0); PLATELET 300 x1000/uL (130-400); RED BLOOD CELL COUNT 2.29 mill/uL (4.2-5.4); RED CELL DISTRIBUTION WIDTH 15.2 % (11.6-14.6)
[2021-07-31 04:52] LABS: CHLORIDE 99 mEq/L (98-107)
[2021-07-31] MEDS: PHENYLEPHRINE 100 MG in DEXT 5% WATER 240 ML IV PRN (05:47)
[2021-07-31] MEDS: ACETYLCYSTEINE 100MG/ML 10% VIAL 4ML INH SCH (08:25)
[2021-07-31] MEDS: AMIODARONE HCL 200 MG TABLET NG SCH ×2 (08:44→08:50)
[2021-07-31] MEDS: PANTOPRAZOLE SODIUM 40 MG/VIAL IV SCH (08:44)
[2021-07-31] MEDS: LEVETIRACETAM 1000MG PREMIX 100 ML IV SCH (08:45)
[2021-07-31] MEDS ORDERED: MORPHINE SULFATE 250 MG in DEXT 5% WATER 225 ML IV PRN (11:45)
[2021-07-31] MEDS: KCL 20MEQ/100ML PREMIX 100 ML IV SCH ×2 (12:34→14:00)
[2021-07-31] MEDS ORDERED: MORPHINE SULFATE 2 MG/ML CPJ (NOT FOR IM USE) IV PRN (13:45)
[2021-07-31] MEDS ORDERED: MORPHINE SULFATE 4 MG/ML CPJ (NOT FOR IM USE) IV NR (13:45)
[2021-07-31] MEDS ORDERED: GLYCOPYRROLATE 0.2MG/ML VIAL 5ML IV PRN (13:45)
[2021-07-31] MEDS ORDERED: LORAZEPAM 2MG/ML CPJ IV PRN (13:45)
[2021-07-31] MEDS ORDERED: GLYCOPYRROLATE 0.2 MG/ML 2ML VIAL IV PRN (14:06)
[2021-07-31] MEDS ORDERED: GLYCOPYRROLATE 0.2 MG/ML 2ML VIAL IV NR (15:30)
[2021-07-31] MEDS ORDERED: SCOPOLAMINE HYDROBROMIDE PATCH 72HR TD NR (16:00)
== END 2021-07-31 18:18 | DRG 853 ==
LOC: ER 18:18 → MICUSO 21:42 → EDBEDREQ 21:47 → EDBEDREQTM 21:47 → EDBEDREQSVC 21:47 → ENRESERV 22:57
PROVIDERS: ADMIT Family Medicine Adult Medicine; ATTEND Family Medicine Adult Medicine
PROC: 00C40ZZ Extirpation of Matter from Intracranial Subdural Space, Open Approach (ICD-10-PCS; principal; 2021-07-16)
PROC: 0NR00JZ Replacement of Skull with Synthetic Substitute, Open Approach (ICD-10-PCS; 2021-07-16)
PROC: 00U207Z Supplement Dura Mater with Autologous Tissue Substitute, Open Approach (ICD-10-PCS; 2021-07-16)
PROC: 00H002Z Insertion of Monitoring Device into Brain, Open Approach (ICD-10-PCS; 2021-07-16)
PROC: 4A107BD Monitoring of Intracranial Pressure, Via Natural or Artificial Opening (ICD-10-PCS; 2021-07-16)
PROC: 5A1955Z Respiratory Ventilation, Greater than 96 Consecutive Hours (ICD-10-PCS; 2021-07-16)
PROC: 02HV33Z Insertion of Infusion Device into Superior Vena Cava, Percutaneous Approach (ICD-10-PCS; 2021-07-16)
PROC: B548ZZA Ultrasonography of Superior Vena Cava, Guidance (ICD-10-PCS; 2021-07-16)
PROC: 0BH17EZ Insertion of Endotracheal Airway into Trachea, Via Natural or Artificial Opening (ICD-10-PCS; 2021-07-16)
PROC: 4A10X4Z Monitoring of Central Nervous Electrical Activity, External Approach (ICD-10-PCS; 2021-07-28)
DX: A41.9 Sepsis, unspecified organism (principal); J96.00 Acute respiratory failure, unspecified whether with hypoxia or hypercapnia; I62.01 Nontraumatic acute subdural hemorrhage; I61.9 Nontraumatic intracerebral hemorrhage, unspecified; J18.9 Pneumonia, unspecified organism; R65.21 Severe sepsis with septic shock; G93.41 Metabolic encephalopathy; E44.0 Moderate protein-calorie malnutrition; N39.0 Urinary tract infection, site not specified; J44.0 Chronic obstructive pulmonary disease with (acute) lower respiratory infection; I48.92 Unspecified atrial flutter; Z99.11 Dependence on respirator [ventilator] status; E87.1 Hypo-osmolality and hyponatremia; I69.354 Hemiplegia and hemiparesis following cerebral infarction affecting left non-dominant side; Z66 Do not resuscitate; M06.9 Rheumatoid arthritis, unspecified; F03.90 Unspecified dementia, unspecified severity, without behavioral disturbance, psychotic disturbance, mood disturbance, and anxiety; I10 Essential (primary) hypertension; M32.9 Systemic lupus erythematosus, unspecified; I27.20 Pulmonary hypertension, unspecified; I48.0 Paroxysmal atrial fibrillation; E87.6 Hypokalemia; E11.9 Type 2 diabetes mellitus without complications; D64.9 Anemia, unspecified; Z20.822 Contact with and (suspected) exposure to COVID-19; I08.1 Rheumatic disorders of both mitral and tricuspid valves; E78.5 Hyperlipidemia, unspecified; L89.156 Pressure-induced deep tissue damage of sacral region; I25.10 Atherosclerotic heart disease of native coronary artery without angina pectoris; R13.12 Dysphagia, oropharyngeal phase; Z79.01 Long term (current) use of anticoagulants; Z90.49 Acquired absence of other specified parts of digestive tract; Z91.81 History of falling; Z78.1 Physical restraint status; Z68.23 Body mass index [BMI] 23.0-23.9, adult
CPT/HCPCS: 36415; 36600; 71045; 76937; 80048; 80053; 80061; 80076; 81003; 82040; 82375; 82465; 82550; 82607; 82805; 83540; 83550; 83605; 83735; 83880; 84134; 84145; 84439; 84443; 84478; 84484; 85025; 85027; 86850; 86900; 87426; 88304; 93005; 93970; 94002; 94003; 94640; 99291; C1713; C1725; C1892; C9113; C9132; J0282; J0360; J0690; J0692; J1100; J1165; J1580; J1953; J2060; J2250; J2270; J2370; J2405; J2543; J2704; J2710; J3010; J3480; J3490; J7030; J7040; J7050; J7060; J7120; J7608